=== PATIENT | female | born 1990 | race Caucasian/White ===

== ENCOUNTER 2023-10-31 19:20 | Emergency (ER) | payer OTHER ==
[2023-10-31 19:43] VITALS: BP 131/81; PULSE 80
== END 2023-10-31 20:45 | disposition home or self-care (01) ==
LOC: CC.ED 19:20
DX: S93.601A Unspecified sprain of right foot, initial encounter (principal); X50.1XXA Overexertion from prolonged static or awkward postures, initial encounter
CPT/HCPCS: 73630-RT; 99283